=== PATIENT | female | born 1980 | race Caucasian/White ===

== ENCOUNTER 2018-09-03 07:39 | Day surgery (SDC) | payer BC ==
[~2018-09-03 07:39] MED LIST: ACETAMINOPHEN 1,000 MG/100 ML BTL IV ONE; CEFAZOLIN 2 Gram 2 GM/50 ML BAG IVPB ONE
[2018-09-03] MEDS ORDERED: SEVOFLURANE 250 ML INH ONE (07:40)
[2018-09-03] MEDS ORDERED: FENTANYL PF 100MCG/2ML VIAL IV ONE (07:40)
[2018-09-03] MEDS ORDERED: DEXAMETHASONE 4 MG/ML 1ML VIAL IVP ONE (07:40)
[2018-09-03] MEDS ORDERED: LIDOCAINE 2% MDV (20MG/ML) 20ML VIAL IV ONE (07:40)
[2018-09-03] MEDS ORDERED: PROPOFOL 10 MG/ML VIAL IV ONE (07:40)
[2018-09-03] MEDS ORDERED: ONDANSETRON HCL IV 4 MG/2 ML VIAL IVP ONE (07:40)
[2018-09-03] MEDS ORDERED: DIPHENHYDRAMINE HCL 50 MG/ML VIAL IVP ONE (07:40)
[2018-09-03] MEDS ORDERED: MIDAZOLAM HCL 2MG/2ML VIAL IV ONE (07:40)
[2018-09-03] MEDS ORDERED: MORPHINE SULFATE 4 MG/ML VIAL ONE (09:05)
[2018-09-03] MEDS ORDERED: METHYLPREDNISOLONE 40MG/VIAL IM ONE (09:33)
[2018-09-03] MEDS ORDERED: BUPIVACAINE 0.5% W/EPI MPF 30 ML VIAL SQ ONE (09:33)
[2018-09-03] MEDS ORDERED: MORPHINE SULFATE 5 MG/ML PFS IVP ONE (09:34)
--- NOTE | 2018-09-04 08:30 | Operative Note ---
DATE OF SURGERY: 09/03/2018 PREOPERATIVE DIAGNOSIS: Internal derangement of the right knee. POSTOPERATIVE DIAGNOSIS: Small chondral lesion of the lateral femoral condyle extension. OPERATION: Right knee arthroscopy with chondroplasty of lateral femoral condyle. Staff Surgeon: Niko Urena MD Anesthesia: General. Preparation: Chloraprep. Individual Considerations: None. PROCEDURE: The patient was taken to the operating room and placed supine on the operating room table. The patient had a successful induction with general anesthetic. The right lower extremity was prepped and draped in the usual fashion. The patient had a superolateral inflow cannula placed. Skin was infiltrated with 0.5% Marcaine with epinephrine prior. The knee was then inflated with normal saline. An inferomedial and an inferolateral portal were made in a similar fashion. The arthroscope was introduced through the inferolateral portal up into the pouch. The patellofemoral compartment was essentially normal. No loose bodies were seen in the pouch or either gutter. Medial compartment structures were well seen and probed and found to be normal including medial meniscus and medial articular cartilage. The notch and the cruciates were normal. Lateral compartment structures apparently looked normal initially including meniscus and articular cartilage but on further probing, there was an area of the femoral condyle which basically had peeled off with the knee in extension measuring about 1 cm to 1.5 cm. I debrided this out to a stable cartilage and luckily it was not down to bone. This would explain her intermittent catching. After irrigation, portals were closed with efren, and 20 mL of 0.5% Marcaine with epinephrine along with 4 mg of morphine and 40 mg of Depo-Medrol were injected into the knee. A sterile bulky compressive dressing was applied. The patient tolerated procedure well. Needle and sponge counts were correct. Estimated blood loss was minimal. She was taken back to recovery in good condition. There were no complications. ALE
== END 2018-09-03 10:38 | disposition home or self-care (01) ==
LOC: SUR 07:39
PROVIDERS: ATTEND Orthopaedic Surgery
DX: M24.10 Other articular cartilage disorders, unspecified site (principal); K21.9 Gastro-esophageal reflux disease without esophagitis; F17.210 Nicotine dependence, cigarettes, uncomplicated
CPT/HCPCS: 29877; 01400; J2405; J3010; J0690; J2270 ×2; J1030; J1200